=== PATIENT | female | born 1970 | race Caucasian/White ===

== ENCOUNTER 2020-04-14 13:19 | Emergency (ER) | payer MEDICAID ==
[~2020-04-14] VITALS: Ht 162.6 cm; Wt 50.8 kg
[2020-04-14 13:20] VITALS: Ht 162.6 cm; Wt 50.8 kg
[2020-04-14 15:06] LABS: BASOPHIL % 0.6 % (0.2-1.3); PLATELET COUNT 263 x10^3mcL (179-408); RED CELL DISTRIBUTION WIDTH 12.8 % (12.3-17.7)
[2020-04-14 15:17] LABS: CALCIUM 8.3 mg/dL (8.5-10.1); CARBON DIOXIDE 28.9 mmol/L (21-32); CHLORIDE SERUM 106 mmol/L (98-107); CREATININE SERUM 0.7 mg/dL (0.6-1.0); GFR1 > 60 mL/min; GLUCOSE SERUM 86 mg/dL (74-106); POTASSIUM SERUM 4.1 mmol/L (3.5-5.1); SODIUM SERUM 142 mmol/L (136-145)
[2020-04-14 15:22] LABS: ALBUMIN 3.5 g/dL (3.4-5.0); ALKALINE PHOSPHATASE 110 U/L (46-116); ALT/SGPT 34 U/L (14-59); AST/SGOT 32 U/L (15-37); BILIRUBIN TOTAL 0.5 mg/dL (0.20-1.00); TOTAL PROTEIN, SERUM 7.2 g/dL (6.4-8.2)
[2020-04-14 21:08] VITALS: BP 120/84
== END 2020-04-14 21:08 | disposition home or self-care (01) ==
LOC: ED 13:19
DX: D25.9 Leiomyoma of uterus, unspecified (principal); K29.70 Gastritis, unspecified, without bleeding
CPT/HCPCS: Q0162